=== PATIENT | female | born 1950 | race Asian ===

== ENCOUNTER 2017-08-08 11:26 | Emergency (ER) | payer SELFPAY ==
[2017-08-08] MEDS ORDERED: ONDANSETRON 4 MG/2 ML VIAL ONE (11:58)
--- NOTE | 2017-08-08 12:03 | EDPHY ---
H & P Time Seen by Provider: 08/08/17 12:02 HPI/ROS: Chief complaint. Vomiting HPI. 66-year-old female presents emergency department with vomiting that began last night. Possible bad food exposure. No recent travel. No diarrhea. Slight crampy mid abdominal pain. No history of abdominal problems or previous abdominal surgery. No fever. No chest discomfort or trouble breathing. ROS Constitutional. no fever/chills, no weakness Eyes. no problems with vision ENT. no sore throat, no nasal drainage Cardiovascular. no chest pain Respiratory. no shortness of breath, no cough Abdominal. Nausea and vomiting . no problems urinating MS. no calf pain/swelling, no neck/back pain, no joint pain Skin. no rash Lymph. no swollen glands Neuro. no headache, no dizziness, no difficulty walking or with speech Past Medical/Surgical History: Hypertension Social History: , nonsmoker, no alcohol Smoking Status: Never smoked Physical Exam: General Appearance: Alert well-developed female mild distress vital signs are stable Eyes: Pupils equal and round no pallor or injection. ENT, Mouth: Mucous membranes are moist. Respiratory: There are no retractions, lungs are clear to auscultation. Cardiovascular: Regular rate and rhythm. Gastrointestinal: Abdomen is soft and nontender, no masses, bowel sounds normal. Neurological: Awake and alert, sensory and motor exams grossly normal. Skin: Warm and dry, no rashes. Musculoskeletal: Neck is supple nontender. Extremities symmetrical, full range of motion. Psychiatric: Patient is oriented X 3, there is no agitation. Constitutional: Initial Vital Signs Temperature (C) 36.7 C 08/08/17 11:30 Heart Rate 77 08/08/17 11:30 Respiratory Rate 16 08/08/17 11:30 Blood Pressure 155/80 H 08/08/17 11:30 O2 Sat (%) 95 08/08/17 11:30 O2 Delivery Mode Room Air Allergies/Adverse Reactions: aspirin Allergy (Verified 08/08/17 11:29) Home Medications: Medication Instructions Recorded Losartan Potassium 08/08/17 Multivitamin (*) 08/08/17 Ondansetron Odt [Zofran Odt 4 mg 4 mg PO Q4 PRN #7 tab 08/08/17 (*)] Medical Decision Making Procedures: IV normal saline, Zofran ED Course/Re-evaluation: Re-evaluation at 1:30 a.m. Patient is stable. She is taking oral ice Chips. Patient is ambulated about the department and has no symptoms. Patient and I discussed laboratory evaluation, treatment plan including criteria for return importance of follow-up and further evaluation. She expresses understanding and agreement Differential Diagnosis: I have considered gastroenteritis, dehydration, electrolyte abnormalities. - Data Points Laboratory Results: Laboratory Results 08/08/17 12:22 08/08/17 12:22 08/08/17 08/08/17 12:22 12:22 WBC 11.59 10^3/uL H 10^3/uL (3.80-9.50) RBC 4.49 10^6/uL 10^6/uL (4.18-5.33) Hgb 13.5 g/dL g/dL (12.6-16.3) Hct 40.0 % % (38.0-47.0) MCV 89.1 fL fL (81.5-99.8) MCH 30.1 pg pg (27.9-34.1) MCHC 33.8 g/dL g/dL (32.4-36.7) RDW 12.4 % % (11.5-15.2) Plt Count 304 10^3/uL 10^3/uL (150-400) MPV 9.4 fL fL (8.7-11.7) Neut % (Auto) 65.4 % % (39.3-74.2) Lymph % (Auto) 27.9 % % (15.0-45.0) [place] % (Auto) 4.8 % % (4.5-13.0) Eos % (Auto) 1.3 % % (0.6-7.6) Baso % (Auto) 0.3 % % (0.3-1.7) Nucleat RBC Rel Count 0.0 % % (0.0-0.2) Absolute Neuts (auto) 7.57 10^3/uL H 10^3/uL (1.70-6.50) Absolute Lymphs (auto) 3.23 10^3/uL H 10^3/uL (1.00-3.00) Absolute Monos (auto) 0.56 10^3/uL 10^3/uL (0.30-0.80) Absolute Eos (auto) 0.15 10^3/uL 10^3/uL (0.03-0.40) Absolute Basos (auto) 0.04 10^3/uL 10^3/uL (0.02-0.10) Absolute Nucleated RBC 0.00 10^3/uL 10^3/uL (0-0.01) Immature Gran % 0.3 % % (0.0-1.1) Immature Gran # 0.04 10^3/uL 10^3/uL (0.00-0.10) Sodium 143 mEq/L mEq/L (135-145) Potassium 3.7 mEq/L mEq/L (3.3-5.0) Chloride 106 mEq/L mEq/L (97-110) Carbon Dioxide 25 mEq/l mEq/l (22-31) Anion Gap 12 mEq/L mEq/L (8-16) BUN 17 mg/dL mg/dL (7-23) Creatinine 0.6 mg/dL mg/dL (0.6-1.0) Estimated GFR > 60 Glucose 113 mg/dL H mg/dL (70-100) Calcium 9.5 mg/dL mg/dL (8.5-10.4) Lipase 76 IU/L IU/L (23-300) Medications Given: Discontinued Medications Sodium Chloride (Ns) 1,000 mls @ 0 mls/hr IV EDNOW ONE; Wide Open PRN Reason: Protocol Stop: 08/08/17 12:11 Last Admin: 08/08/17 12:25 Dose: 1,000 mls Ondansetron HCl (Zofran) 4 mg IVP EDNOW ONE Stop: 08/08/17 12:11 Last Admin: 08/08/17 12:25 Dose: 4 mg Departure - Departure Disposition: Home, Routine, Self-Care Clinical Impression: Vomiting Qualifiers: Vomiting type: unspecified Vomiting Intractability: non-intractable Nausea presence: with nausea Qualified Code(s): R11.2 - Nausea with vomiting, unspecified Condition: Good Instructions: Acute Nausea and Vomiting (ED) Additional Instructions: Frequent, small sips fluids well nauseated. Gradual diet advancement. Zofran if needed using 1 pill every 4 hr for nausea and vomiting. Return for worsening symptoms including abdominal pain. Recheck in 1 day if not improved Prescriptions: Ondansetron Odt [Zofran Odt 4 mg (*)] 4 mg PO Q4 PRN #7 tab PRN Reason: Nausea/Vomiting, Use 1st
[2017-08-08] MEDS ORDERED: ONDANSETRON 4 MG/2 ML VIAL IVP ONE (12:10)
[2017-08-08] MEDS ORDERED: NS 1,000 ML IV ONE (12:10)
[2017-08-08 12:35] LABS: PLATELET COUNT 304 10^3/uL (150-400)
[2017-08-08 14:12] VITALS: BP 140/65
== END 2017-08-08 14:13 | disposition home or self-care (01) ==
DX: R11.2 Nausea with vomiting, unspecified (principal); E86.9 Volume depletion, unspecified; I10 Essential (primary) hypertension
CPT/HCPCS: 96374; J2405